=== PATIENT | male | born 1980 ===

== ENCOUNTER 2022-06-03 04:02 | Emergency (ER) | payer OTHER ==
[~2022-06-03] VITALS: Ht 177.8 cm; Wt 86.4 kg
[2022-06-03 04:13] VITALS: TEMP 98.1
[2022-06-03] MEDS ORDERED: PREDNISONE20 MG PO ×2 (04:59→05:24)
[2022-06-03] MEDS ORDERED: TORADOL 10MG TA10 MG PO ×2 (04:59→05:24)
[2022-06-03 05:13] VITALS: BP 135/85; PULSE 75
== END 2022-06-03 05:13 | disposition home or self-care (01) ==
LOC: COL.ER 04:02
DX: M75.102 Unspecified rotator cuff tear or rupture of left shoulder, not specified as traumatic (principal); S46.812A Strain of other muscles, fascia and tendons at shoulder and upper arm level, left arm, initial encounter; X58.XXXA Exposure to other specified factors, initial encounter
CPT/HCPCS: J7512